=== PATIENT | male | born 1990 | race Caucasian/White ===

== ENCOUNTER 2017-04-20 16:00 | Emergency (ER) | payer OTHER ==
[~2017-04-20] VITALS: Ht 175.3 cm; Wt 61.2 kg
--- NOTE | 2017-04-20 16:23 | NUR ---
CALLED DIRECTOR OF GOLF JANNET WILLIAMSON
--- NOTE | 2017-04-20 16:48 | NUR ---
match up worker met with patient at bedside and provided him resources to dental clinics that take medical insurance as patient had requested.
== END 2017-04-20 17:23 | disposition home or self-care (01) ==
LOC: ER 16:03
DX: R68.84 Jaw pain (principal); K08.89 Other specified disorders of teeth and supporting structures
CPT/HCPCS: 99283; A4606; Z7610